=== PATIENT | male | born 1980 | race Caucasian/White ===

== ENCOUNTER 2016-07-08 10:07 | Outpatient (CLI) | payer OTHER | END 2016-07-08 10:08 | disposition home or self-care (01) | DX: E03.9 Hypothyroidism, unspecified (principal); Z00.00 Encounter for general adult medical examination without abnormal findings ==

== ENCOUNTER 2017-07-20 10:14 | Outpatient (CLI) | payer OTHER ==
[2017-07-20 17:51] LABS: ALBUMIN 4.9 g/dL (3.2-5.5); ALKALINE PHOSPHATASE 53 IU/L (42-121); ALT ALANINE AMINOTRANSFERASE 29 IU/L (10-60); AST ASPARTATE AMINOTRANSFERASE 18 IU/L (10-42); BILIRUBIN,TOTAL 1.9 mg/dL (0.2-1.0); BUN - BLOOD UREA NITROGEN 20 mg/dL (6-20); CALCIUM 9.4 mg/dL (8.5-10.3); CARBON DIOXIDE - CO2 26 mmol/L (21-32); CHLORIDE 107 mmol/L (101-111); CHOL/HDL RATIO 4.7 (<5.0); CHOLESTEROL 160 mg/dL; GFR - MDRD 85 (>89); GLUCOSE 97 mg/dL (70-100); HDL CHOLESTEROL 34 mg/dL; LDL CHOLESTEROL,CALCULATED 97 mg/dL; LDL/HDL RATIO 2.9 (<3.6); SODIUM 140 mmol/L (135-145); TOTAL PROTEIN 7.3 g/dL (6.7-8.2); VLDL CHOLESTEROL 29 mg/dL
== END 2017-07-20 10:15 | disposition home or self-care (01) ==
LOC: LAB.F 10:14
PROVIDERS: ATTEND Family Medicine
DX: Z00.00 Encounter for general adult medical examination without abnormal findings (principal); E03.9 Hypothyroidism, unspecified; E55.9 Vitamin D deficiency, unspecified
CPT/HCPCS: 36415; 80053; 80061; 82306; 83721; 84443

== ENCOUNTER 2018-05-17 19:32 | Emergency (ER) | payer OTHER ==
--- NOTE | 2018-05-17 19:49 | ED Physician Documentation ---
PD HPI UPPER EXT INJURY - Stated complaint Stated Complaint: FINGER LAC - Chief complaint Chief Complaint: Laceration - History obtained from History obtained from: Patient - History of Present Illness Location: Left (Right-handed gentleman who is up-to-date on tetanus cut his left fourth finger with a knife while cutting bread at home just prior to arrival.) Review of Systems Constitutional: reports: Reviewed and negative Throat: reports: Reviewed and negative Cardiac: reports: Reviewed and negative PD PAST MEDICAL HISTORY - Present Medications Home Medications: Ambulatory Orders Medication Instructions Recorded Confirmed Cholecalciferol [Vitamin D3] 1 cap PO DAILY 05/17/18 05/17/18 Levothyroxine [Synthroid] 75 mcg PO QDAC 05/17/18 05/17/18 raNITIdine [Zantac] 150 mg PO DAILY 05/17/18 05/17/18 - Allergies Allergies/Adverse Reactions: Allergies Allergy/AdvReac Type Severity Reaction Status Date / Time No Known Drug Allergies Allergy Verified 05/17/18 19:43 PD ED PE NORMAL - Vitals Vital signs reviewed: Yes - General General: Alert and oriented X 3, No acute distress - Extremities Extremities: Other (On the pulp of the left fourth finger there is a 1 cm curved laceration not involving the nail bed) - Neuro Neuro: Alert and oriented X 3, Normal speech Results - Vitals Vitals: Vital Signs - 24 hr 05/17/18 19:39 Temperature 36.9 C Heart Rate 73 Respiratory 19 Rate Blood Pressure 152/97 H O2 Saturation 98 Oxygen O2 Source Room air Procedures - Laceration (location) L 4th finger Length in cm: 1 Wound type: Curved Neurovascular status: Sensory intact, Motor intact, Vascular intact Anesthesia: Lidocaine 1%, With bicarb Wound Preparation: Irrigated copiously NS Skin layer closure: Nylon, Interrupted, Size #-0 - enter number (5-0), Sutures - enter # (5) Other: Patient tolerated well, No complications, Neurovascular intact, Tetanus UTD Complexity: Simple Departure - Departure Disposition: 01 Home, Self Care Clinical Impression: Laceration Condition: Good Record reviewed to determine appropriate education?: Yes Instructions: ED Laceration Hand Comments: Come back for any signs of infection which would include: Redness, swelling, drainage, increased pain, or fevers. Follow-up with your physician in 14 days for suture removal. Your blood pressure was elevated today on check into the emergency department. This does not mean that you have hypertension, it is a common phenomenon to come to the emergency department and have elevated blood pressure. I recommend that you see your primary care physician within the week to have it rechecked when you are feeling better.
[2018-05-17] MEDS: BUFFERED LIDOCAINE 10 ML SYRINGE SUBQ STA (20:04)
[2018-05-17 20:32] VITALS: BP 148/92
== END 2018-05-17 20:30 | disposition home or self-care (01) ==
LOC: ED 19:32
DX: S61.214A Laceration without foreign body of right ring finger without damage to nail, initial encounter (principal); W26.0XXA Contact with knife, initial encounter; Y93.G1 Activity, food preparation and clean up; Y92.009 Unspecified place in unspecified non-institutional (private) residence as the place of occurrence of the external cause; R03.0 Elevated blood-pressure reading, without diagnosis of hypertension
CPT/HCPCS: 12001; 99282; 99283